=== PATIENT | female | born 1985 | race Caucasian/White ===

== ENCOUNTER → 2019-12-12 | Outpatient (CLI) | payer BC | END | disposition home or self-care (01) | LOC: LABWHC1 14:55 | PROVIDERS: ATTEND Otolaryngology | DX: J30.89 Other allergic rhinitis (principal) | CPT/HCPCS: 36415 ==

== ENCOUNTER 2021-10-24 12:28 | Day surgery (SDC) | payer BC ==
[2021-10-23 08:37] VITALS: BMI 43.7
--- NOTE | 2021-10-23 18:18 | P.GSHP ---
History of Present Illness H&P Date: 10/23/21 Chief Complaint: Left flank pain The patient is a 36-year-old white female with no prior history of urolithiasis. On 10/21/2021 she experienced acute onset of left flank pain. CT scan showed left hydronephrosis due to a probable 5 mm left distal ureteral calculus. Because she has multiple pelvic phleboliths, a calculus could not be identified with certainty. She was offered the options of medical expulsion therapy versus ureteroscopic removal of the calculus. Because of intractable symptoms she desires surgical removal of the calculus. - Constitutional Constitutional: Reports chills, Denies fever - Gastrointestinal Gastrointestinal: Reports nausea - Genitourinary (Female) Genitourinary: Reports flank pain, Reports kidney stones, Denies hematuria Past Medical History Past Medical History: Hypertension Additional Past Medical History / Comment(s): CHRONIC HIVES-ETIOLOGY UNK-CUR RENTLY CLEAR. KIDNEY STONES History of Any Multi-Drug Resistant Organisms: None Reported Past Surgical History: Adenoidectomy, Bariatric Surgery, Section, Tonsillectomy Additional Past Surgical History / Comment(s): C-SEC X 2. EGD. ORAL SX AT AGE 18 Past Anesthesia/Blood Transfusion Reactions: No Reported Reaction Smoking Status: Former smoker - Past Family History Mother Family Medical History: No Reported History Medications and Allergies Home Medications Medication Instructions Recorded Confirmed Type Cephalexin [Keflex] 500 mg PO Q12HR 10/23/21 10/23/21 History Desvenlafaxine Succinate [Pristiq] 50 mg PO DAILY 10/23/21 10/23/21 History HYDROcodone/APAP 5-325MG [Matthews 1 - 2 tab PO Q6HR PRN 10/23/21 10/23/21 History 5-325] Omalizumab [Xolair] 150 mg SQ Q14D 10/23/21 10/23/21 History carvediloL [Coreg] 3.125 mg PO HS 10/23/21 10/23/21 History l-Norgest/E.estradiol-E.estrad 1 tab PO DAILY 10/23/21 10/23/21 History [Seasonique 0.15-0.03-0.01 Tab] Allergies Allergy/AdvReac Type Severity Reaction Status Date / Time No Known Allergies Allergy Verified 10/23/21 08:28 Surgical - Exam - General well developed, well nourished, moderate distress - Neck no masses, trachea midline - Respiratory normal respiratory effort - Abdomen Abdomen: soft, tender (mild left lower quadrant tenderness to palpation), no guarding, no rigid, no rebound - Psychiatric oriented to time, oriented to person, oriented to place, speech is normal, memory intact Results - Imaging CT scan - abdomen: report reviewed, image reviewed Assessment and Plan (1) Calculus of ureter Status: Acute Code(s): N20.1 - CALCULUS OF URETER SNOMED Code(s): 68686687 Plan: Cystoscopy, left retrograde pyelogram, left ureteroscopy with Holmium laser lithotripsy and possible stone basketing, left ureteral stent insertion. The procedure has been reviewed in detail with the patient. She has been made aware of potential risks, which include anesthesia, bleeding, infection, inability to remove the calculus, and ureteral injury.
[~2021-10-24 12:28] MED LIST: DEXAMETHASONE SOD PHOSPHATE 4 MG/ML 1 ML VIAL IV ONE; HYDROmorphone 0.5 MG/0.5 ML SYRINGE IVP PRN; LACTATED RINGERS 1,000 ML IV SCH; MIDAZOLAM 2 MG/2 ML VIAL IV PRN; ONDANSETRON 4 MG/2 ML VIAL IVP ONE; SCOPOLAMINE 1 MG/72 HR PATCH TRANSDERM ONE
[2021-10-24] MEDS ORDERED: LACTATED RINGERS 1,000 ML IV ONE ×2 (13:12→15:10)
[2021-10-24] MEDS ORDERED: MIDAZOLAM 2 MG/2 ML VIAL ONE (13:46)
[2021-10-24] MEDS ORDERED: fentaNYL (PF) 50 MCG/ML 2 ML AMP ONE (13:46)
[2021-10-24] MEDS ORDERED: SUCCINYLCHOLINE CHLORIDE 100 MG/5 ML SYR IV ONE (13:46)
[2021-10-24] MEDS ORDERED: PROPOFOL 10 MG/ML 20 ML VIAL IV ONE (13:46)
[2021-10-24] MEDS ORDERED: LIDOCAINE 2% INJ 20 MG/ML (2 ML VIAL) ONE (13:46)
[2021-10-24 14:37] VITALS: RESP 16; TEMP 96.8
--- NOTE | 2021-10-24 14:41 | P.OP ---
Date of Procedure: 10/24/21 Preoperative Diagnosis: Left ureteral calculus Postoperative Diagnosis: Same Procedure(s) Performed: Cystoscopy, left ureteroscopy with Holmium laser lithotripsy Anesthesia: NIGEL Surgeon: Alfonso Solomon Estimated Blood Loss (ml): 0 IV fluids (ml): 400 Pathology: other (Calculus fragments, sent for chemical analysis) Condition: stable Disposition: PACU Indications for Procedure: The patient is a 36-year-old white female with no prior history of urolithiasis. On 10/21/2021 she experienced acute onset of left flank pain. CT scan showed left hydronephrosis due to a probable 5 mm left distal ureteral calculus. Because she has multiple pelvic phleboliths, a calculus could not be identified with certainty. She was offered the options of medical expulsion therapy versus ureteroscopic removal of the calculus. Because of intractable symptoms she roseann res surgical removal of the calculus. Operative Findings: Calculus impacted at left UVJ. Fragmented and removed completely. Description of Procedure: The patient was taken to the operating room and placed in the dorsolithotomy position, with legs supported in Luis stirrups. The external genitalia was prepped and draped sterilely. The 30 lens was used to introduce the 21-Uzbek Edmonds cystoscopic sheath through the urethra and into the bladder under direct vision. The bladder was examined in its entirety. The right ureteral orifice appeared normal. A calculus was impacted at the left ureteral orifice. No tumors or other foreign bodies were seen. The Edmonds semirigid ureteroscope was advanced into the bladder, and the left ureteral orifice was cannulated. The 365 micron Holmium laser probe was passed through the ureteroscope, and lithotripsy was carefully performed to fragment the calculus without damaging the adjacent ureter. All calculus fragments passed distally into the bladder. The ureteroscope was advanced up to the left proximal ureter. There were no residual calculus fragments, as I'll passed distally into the bladder, and there was no evidence of ureteral trauma. The bladder was emptied and the cystoscope removed. All removed calculus fragments were saved and sent for chemical analysis. The patient tolerated the procedure well and was taken to the recovery room in stable condition. [place] Report: Procedure Acuity: Urgent Stone Size and Location: 5 mm, left UVJ Ureteral Dilation: No Ureteral Access Sheath Used: No Stone Sent for Analysis: Yes All Stones/Fragments Were Removed with a Basket: Yes Complications: No Preoperative Antibiotics Given: Yes Stent Placed: No Discharge Medications: Toradol
[2021-10-24 15:37] VITALS: BP 143/84; PULSE 86
[2021-10-24] MEDS ORDERED: KETOROLAC 15 MG/ML 1 ML VIAL ONE (16:13)
[2021-10-24] MEDS ORDERED: KETOROLAC 15 MG/ML 1 ML VIAL IVP ONE (16:18)
== END 2021-10-24 16:52 | disposition home or self-care (01) ==
LOC: OR 12:28
PROVIDERS: ATTEND Urology
DX: N13.2 Hydronephrosis with renal and ureteral calculous obstruction (principal); I10 Essential (primary) hypertension; L50.8 Other urticaria; Z87.891 Personal history of nicotine dependence; Z79.899 Other long term (current) drug therapy; Z98.891 History of uterine scar from previous surgery; Z98.84 Bariatric surgery status; Z90.49 Acquired absence of other specified parts of digestive tract; Z90.89 Acquired absence of other organs; Z79.3 Long term (current) use of hormonal contraceptives; Z79.2 Long term (current) use of antibiotics
CPT/HCPCS: 81025; 82365; 52353; J2250; J1100; J0690; J2405; J3010; J1885; J0330; J2704; J2001

== ENCOUNTER → 2021-12-18 | Outpatient (CLI) | payer BC ==
--- NOTE | 2021-12-18 15:07 | US ---
EXAMINATION TYPE: US kidneys/renal and bladder DATE OF EXAM: 12/18/2021 COMPARISON: NONE CLINICAL HISTORY: 36-year-old female N13.2 HYDRONEPHROSIS. Left renal stones removed in October 2021 TECHNIQUE: Multiple sonographic images of the kidneys and bladder are obtained. FINDINGS: EXAM MEASUREMENTS: Right Kidney: 12.7 x 5.1 x 6.5 cm Left Kidney: 12.98 x 5.45 x 6.03 cm Right Kidney: Scattered tiny non-shadowing echogenic foci visualized throughout. Largest measuring . 44 x .23 x .36cm. Unclear if these represent prominent vascular reflectors or tiny nonobstructive ca lculi. No hydronephrosis or other masses seen. Left Kidney: Scattered tiny non-shadowing echogenic foci visualized throughout. Largest measuring .4 1 x .10 x .35cm., Similar to the contralateral side No hydronephrosis or other masses seen. Bladder: Underdistended bladder shows no gross abnormality. Bilateral Jets seen: Yes IMPRESSION: 1. No hydronephrosis. 2. Numerous small echogenic foci scattered throughout both kidneys measuring up to 4 mm. Unclear if t hese represent prominent vascular reflectors or tiny nonobstructive calculi.
== END | disposition home or self-care (01) ==
LOC: RADUSWWP 10:02
PROVIDERS: ATTEND Urology
DX: N13.2 Hydronephrosis with renal and ureteral calculous obstruction (principal)
CPT/HCPCS: 76770